=== PATIENT | male | born 1985 | race Caucasian/White ===

== ENCOUNTER 2020-08-21 23:41 | Emergency (ER) | payer OTHER ==
[~2020-08-21] VITALS: Ht 180.3 cm; Wt 89.0 kg
--- NOTE | 2020-08-22 00:16 | PHYS DOC ---
Past History Past Medical History: Diabetes Smoking: Cigarettes, Quit Less Than 1 Year Drug Use: Amphetamine, Marijuana, Methamphetamine General Adult EDM: Chief Complaint: HYPOGLYCEMIA HPI: HPI: ".[facility] ...because I .. Violated my parole.. It was stupid.. some dirty urine... but I got a court date on Saturday...but the problem is.. they are not taking care of my diabetes right... " " You need to admit me until my court date Saturday..." Patient is a 35 year old male prisoner from [facility] who presents with mental status change and hypoglycemia. Patient reportedly had mental status changes at the long-term center and was found to have low glucose levels. Patient was given glucagon.. The pt. states he has served 18 months of his 121 month sentence. Patient states he has been diabetic since 1997. States currently he is on high sliding scale. Complains that he does not get his night snack. Patient requesting to be admitted to the hospital until his court hearing on Saturday. Patient did take he has been taking care of his diabetes himself prior to his incarceration. No recent travel outside [facility]. No specific ill contacts. Does have a history of polysubstance abuse and tob acco use. . Review of Systems: Review of Systems: Constitutional: Denies fever or chills Eyes: Denies change in visual acuity HENT: Denies nasal congestion or sore throat Respiratory: Denies cough or shortness of breath Cardiovascular: Denies chest pain or edema GI: Denies abdominal pain, nausea, vomiting, bloody stools or diarrhea : Denies dysuria Musculoskeletal: Denies back pain or joint pain Integument: Denies rash Neurologic: Denies headache, focal weakness or sensory changes Endocrine: Denies polyuria or polydipsia Lymphatic: Denies swollen glands Psychiatric: Denies depression or anxiety Heart Score: HEART Score for Chest Pain: HEART Score for Chest Pain Response (Comments) Value History Slighlty/Non-Suspicious 0 ECG Normal 0 Age < 45 0 Risk Factors 1 or 2 Risk Factors 1 Troponin < Normal Limit 0 Total 1 Risk Factors: Risk Factors: DM, Current or recent (<one month) smoker, HTN, HLP, family history of CAD, obesity. Risk Scores: Score 0 - 3: 2.5% MACE over next 6 weeks - Discharge Home Score 4 - 6: 20.3% MACE over next 6 weeks - Admit for Clinical Observation Score 7 - 10: 72.7% MACE over next 6 weeks - Early Invasive Strategies Family History: Family History: Noncontributory to presentation Current Medications: Current Meds: See nursing for home meds Allergies: Allergies: No known drug allergies Physical Exam: PE: Constitutional: Well developed, well nourished, no acute distress, non-toxic ap pearance. [] HENT: Normocephalic, atraumatic, bilateral external ears normal, oropharynx moist, no oral exudates, nose normal. [] Eyes: PERRLA, EOMI, conjunctiva normal, no discharge. [] Neck: Normal range of motion, no tenderness, supple, no stridor. [] Cardiovascular:Heart rate regular rhythm, no murmur [] Lungs & Thorax: Bilateral breath sounds equal apex on auscultation [] Abdomen: Bowel sounds normal, soft, no tenderness, no masses, no pulsatile masses. [] Skin: Warm, dry, no erythema, no rash. Multiple tattoos Back: No tenderness, no CVA tenderness. [] Extremities: No tenderness, no cyanosis, no clubbing, ROM intact, no edema. [] Neurologic: Alert and oriented X 3, normal motor function, normal sensory function, no focal deficits noted. [] Psychologic: Affect angry, judgement normal, mood normal. [] Current Patient Data: Labs: Laboratory Tests Test 08/21/20 23:53 Glucose (Fingerstick) 142 mg/dL (70-99) H EKG: EKG: My interpretation EKG shows a sinus rhythm at 75 bpm. No findings of acute STEMI of contralateral changes. Did have a slightly prolonged QT interval at 430 ms and a QTc interval of 483 ms [] Radiology/Procedures: Radiology/Procedures: [] Course & Med Decision Making: Course & Med Decision Making Pertinent Labs and Imaging studies reviewed. (See chart for details) Patient did receive a liter of fluid here and several checks her glucose all which remained elevated. Patient advised to keep a snack for episodes of hypoglycemia. Push fluids. Follow-up primary care. Pt. advised always keep a snack for episodes of hypoglycemia. Impression: 1. Hypoglycemia 2. DM 3. Mild leukocytosis [] Dragon Disclaimer: Dragon Disclaimer: This electronic medical record was generated, in whole or in part, using a voice recognition dictation system. Departure Departure: Disposition: 01 DC HOME SELF CARE/HOMELESS Condition: STABLE Dragon Disclaimer This chart was dictated in whole or in part using Voice Recognition software in a busy, high-work load, and often noisy Emergency Department environment. It may contain unintended and wholly unrecognized errors or omissions. Dragon Disclaimer This chart was dictated in whole or in part using Voice Recognition software in a busy, high-work load, and often noisy Emergency Department environment. It may contain unintended and wholly unrecognized errors or omissions. LANCE CANDELARIA MD Aug 22, 2020 00:16
[2020-08-22] MEDS: IV RINGERS SOLUTION,LACTATED 1,000 ML IV SCH (00:43)
[2020-08-22 00:59] LABS: BASO # 0.1 x10^3/uL (0.0-0.2); BASO % 1 % (0-3); EOS # 0.1 x10^3/uL (0.0-0.7); EOS % 1 % (0-3); HEMATOCRIT 38.7 % (39.0-53.0); HEMOGLOBIN 12.5 g/dL (13.0-17.5); LYMPH # 1.4 x10^3/uL (1.0-4.8); LYMPH % 12 % (24-48); MEAN CORPUSCULAR HEMOGLOBIN 30 pg (25-35); MEAN CORPUSCULAR HGB CONC 32 g/dL (31-37); MEAN CORPUSCULAR VOLUME 92 fL (79-100); MONO # 1.1 x10^3/uL (0.0-1.1); MONO % 10 % (0-9); NEUT % 77 % (31-73); PLATELET COUNT 286 x10^3/uL (140-400); RED BLOOD COUNT 4.23 x10^6/uL (4.30-5.70); RED CELL DISTRIBUTION WIDTH 12.4 % (11.5-14.5); WHITE BLOOD COUNT 11.7 x10^3/uL (4.0-11.0)
--- NOTE | 2020-08-22 01:00 | EKG ---
[address] [address] Test Date: 2020-08-22 Test Time: 00:30:07 Pat Name: MORIS PEARL Department: Room: Gender: M Maintenance Aide: : 1985 Requested By: LANCE CANDELARIA Order Number: [id number] Reading MD: Ubaldo Garcia MD Measurements Intervals Witter Rate: 75 P: 30 AL: 178 QRS: 41 QRSD: 104 T: 62 QT: 430 QTc: 483 Interpretive Statements SINUS RHYTHM PROLONGED QT NON-SPECIFIC ST/T CHANGES Electronically Signed On 08-22-2020 14:05:56 CDT by Ubaldo Garcia MD
[2020-08-22 01:17] LABS: CALCIUM 9.1 mg/dL (8.5-10.1); CREATININE 1.2 mg/dL (0.7-1.3); GFR 68.5; POTASSIUM 3.2 mmol/L (3.5-5.1)
[2020-08-22 01:34] LABS: MAGNESIUM 1.9 mg/dL (1.8-2.4)
[2020-08-22 02:30] VITALS: BP 121/87
[2020-08-22] MEDS: POTASSIUM CHLORIDE 20 MEQ TABLET.ER. PO ONE (02:30)
[2020-08-22 02:56] LABS: BARBITURATES NEG (NEG); BENZODIAZEPINES NEG (NEG); CANNABINOIDS NEG (NEG); COCAINE NEG (NEG); METHADONE NEG (NEG); OPIATES NEG (NEG); PHENCYCLIDINE NEG (NEG)
[2020-08-22 02:59] LABS: BACTERIA,URINE 0 /HPF (0-FEW); BILIRUBIN,URINE NEG (NEG); CLARITY,URINE CLEAR; COLOR,URINE YELLOW; GLUCOSE,URINE 100 mg/dL (NEG); NITRITE,URINE NEG (NEG); RBC,URINE 0 /HPF (0-2); SQUAMOUS EPITHELIAL CELL,UR MOD /LPF; UROBILINOGEN,URINE 0.2 mg/dL (0.2 mg/dL); WBC,URINE OCC /HPF (0-4)
[2020-08-22 03:07] LABS: AMPHETAMINE/METHAMPHETAMINE NEG (NEG)
== END 2020-08-22 02:30 | disposition home or self-care (01) ==
LOC: EEVIPCON 23:41 → ER 23:41
DX: E11.649 Type 2 diabetes mellitus with hypoglycemia without coma (principal); D72.829 Elevated white blood cell count, unspecified; Z87.891 Personal history of nicotine dependence
CPT/HCPCS: 36415; 80048; 80307; 81001; 82550; 82947; 83690; 83735; 83880; 84443; 84484; 85025; 93005; 96360; 99285; J7120